=== PATIENT | female | born 1945 | race Caucasian/White ===

== ENCOUNTER 2017-05-02 13:12 | Inpatient (IN) | payer MEDICARE, OTHER ==
[~2017-05-02] VITALS: Ht 160 cm; Wt 68.0 kg
[~2017-05-02 13:12] MED LIST: AMIO200T2 PO; APIX5TAB PO; CALC-481 PO; CHOL100062 PO; CLON0.5T4 PO; DOCU100C36 PO; ERGO500014 PO; LINA145C PO; PREG100C PO; PYRI50TA9 PO; ROSU10TA PO; SULF1TAB48 PO; VALS80TA2 PO
--- NOTE | 2017-05-02 13:28 | NUR ---
PT IS IN ROOM #1B. DR HARRIS EVALUATED THE PT.
[2017-05-02] MEDS ORDERED: COREG PO (13:37)
[2017-05-02 13:52] LABS: CARBON DIOXIDE 28 mmol/L (21-32); CHLORIDE 101 mmol/L (98-107); CREATININE 1.2 mg/dL (0.6-1.3); GLUCOSE 128 mg/dL (74-106); POTASSIUM 3.7 mmol/L (3.5-5.1); UREA NITROGEN, BLOOD 27 mg/dL (7-18)
[2017-05-02 13:55] LABS: BASOPHILS # (AUTO) 0.1 K/uL (0.0-8.0); BASOPHILS % (AUTO) 1.1 % (0.0-2.0); EOSINOPHILS # (AUTO) 0.1 K/uL (0.0-0.7); EOSINOPHILS % (AUTO) 1.3 % (0.0-7.0); HEMATOCRIT 41.7 % (31.2-41.9); HEMOGLOBIN 13.8 g/dL (10.9-14.3); LYMPHOCYTES # (AUTO) 2.4 K/uL (20.0-40.0); LYMPHOCYTES % (AUTO) 38.1 % (20.5-51.5); MEAN CORPUSCULAR HEMOGLOBIN 28.5 uug (24.7-32.8); MEAN CORPUSCULAR HGB CONC 33 g/dL (32.3-35.6); MEAN CORPUSCULAR VOLUME 85.9 fL (75.5-95.3); MONOCYTES # (AUTO) 0.8 K/uL (2.0-10.0); MONOCYTES % (AUTO) 12.6 % (0.0-11.0); NEUTROPHILS # (AUTO) 2.9 K/uL (1.8-8.9); NEUTROPHILS % (AUTO) 46.9 % (38.5-71.5); PLATELET COUNT (AUTO) 202 K/uL (179-408); RED BLOOD CELL COUNT(AUTO) 4.85 MIL/uL (3.63-4.92); WHITE BLOOD COUNT (AUTO) 6.2 K/uL (3.8-11.8)
[2017-05-02 14:10] LABS: ALANINE AMINOTRANSFERASE 32 U/L (14-59); ALKALINE PHOSPHATASE 72 U/L (50-136); ASPARTATE AMINOTRANSFERASE 21 U/L (15-37); BILIRUBIN,DIRECT 0.1 mg/dL (0.0-0.2); BILIRUBIN,TOTAL 0.5 mg/dL (0.2-1.0)
[2017-05-02 14:14] LABS: BAND % (MANUAL) 1 % (0-10); BASOPHILS % (MANUAL) 1 % (0-2); EOSINOPHILS % (MANUAL) 1 % (0-8); LYMPHOCYTES % (MANUAL) 39 % (20-40); METAMYELOCYTES % 3 % (0-1); MONOCYTES % (MANUAL) 16 % (2-10); MYELOCYTES % 1 % (0-0); NEUTROPHILS % (MANUAL) 38 % (42-75)
--- NOTE | 2017-05-02 15:02 | NUR ---
REPORT WAS GIVEN TO SENIOR NET APPLICATION DEVELOPER. PT WAS TRANSFERED TO ROOM #206.
[2017-05-02] MEDS ORDERED: ACETAMINOPHEN 325 MG TABLET PO PRN (15:30)
[2017-05-02] MEDS ORDERED: MAGNESIUM HYDROXIDE 30 ML LIQUID UDC PO PRN (15:30)
[2017-05-02] MEDS ORDERED: ZOLPIDEM 5 MG TABLET PO PRN (15:30)
[2017-05-02] MEDS ORDERED: ERGOCALCIFEROL 50,000 UNIT CAPSULE PO SCH (15:30)
[2017-05-02] MEDS ORDERED: HYDROCODONE/APAP 5-325MG TABLET PO PRN (15:30)
[2017-05-02] MEDS ORDERED: ONDANSETRON 4 MG/2 ML VIAL IV PRN (15:30)
[2017-05-02] MEDS ORDERED: Z GUARD REMEDY PASTE 57 GM TUBE TOP PRN (15:30)
--- NOTE | 2017-05-02 15:50 | NUR ---
Patient was received from ER. Patient is in no apparent distress at this time. Patient oriented to unit, and youth nutritional monitor attached. Patients cardiac status is Sinus alia and 55 bpm.
[2017-05-02 16:00] VITALS: BP 114/64
[2017-05-02] MEDS ORDERED: ZOLP5TAB2 PO (16:01)
[2017-05-02] MEDS ORDERED: APIXABAN 5 MG TABLET PO SCH (17:00)
[2017-05-02] MEDS ORDERED: [UNRECOGNIZED DRUG - OTHER] PO SCH (17:00)
[2017-05-02] MEDS ORDERED: APIXABAN 5 MG TABLET PO ONE (17:00)
[2017-05-02] MEDS ORDERED: VITAMIN D3 PO SCH (17:00)
[2017-05-02] MEDS ORDERED: CALCIUM CARBONATE PO SCH (17:00)
[2017-05-02] MEDS: DOCUSATE SODIUM 100 MG CAPSULE PO SCH (17:34)
[2017-05-02] MEDS: AMIODARONE HCL 200 MG TABLET PO SCH (17:35)
[2017-05-02] MEDS: IV NS 1000 ML 1,000 ML IV PRN (17:42)
[2017-05-02] MEDS ORDERED: EVOL140S SQ (18:24)
[2017-05-02] MEDS ORDERED: APIX2.5T PO (18:40)
--- NOTE | 2017-05-02 18:51 | NUR ---
Patient is ambulating with standby assistance, all meds reconciled with the pharmacist and doctor, and patients own meds taken to pharmacy. Patient is in no distress at this time. Patient in bed awake.
--- NOTE | 2017-05-02 20:00 | NUR ---
RECEIVED PATIENT AWAKE IN BED. PATIENT IS A/O X4. CZECH SPEAKING BUT ABLE TO MAKE NEEDS KNOWN. DENIES PAIN OR DISCOMFORT. DENIES ANY DIZZINESS. NO RESP. DISTRESS NOTED. IVF INFUSING WELL TO RIGHT FA #20 GAUGE. ON TELE SB IN THE 50'S. CALL LIGHT IN REACH. BED ALARM ON. ALL NEEDS ATTENDED, WILL CONTINUE TO MONITOR.
[2017-05-02] MEDS: CALCIUM CARB/VITAMIN D 500MG-200UNITS TABLET PO SCH (20:26)
[2017-05-02 20:30] VITALS: BP 112/51
[2017-05-02] MEDS ORDERED: HOME MED MISCELLANEOUS PO SCH (21:00)
[2017-05-02] MEDS ORDERED: CLONAZEPAM 0.5 MG TABLET PO SCH (21:00)
[2017-05-02] MEDS ORDERED: Medication Not On Formulary EA (Rosuvastatin Calcium (Crestor) 10 MG) PO SCH (21:00)
[2017-05-02] MEDS ORDERED: ATORVASTATIN 20 MG TABLET PO SCH (21:00)
[2017-05-03 00:15] VITALS: BP 106/40
[2017-05-03 04:22] VITALS: BP 125/47
[2017-05-03] MEDS: IV NS 1000 ML 1,000 ML IV PRN (06:29)
[2017-05-03 06:40] LABS: BASOPHILS # (AUTO) 0.1 K/uL (0.0-8.0); EOSINOPHILS # (AUTO) 0.1 K/uL (0.0-0.7); EOSINOPHILS % (AUTO) 2.7 % (0.0-7.0); HEMATOCRIT 38.9 % (31.2-41.9); LYMPHOCYTES # (AUTO) 2.1 K/uL (20.0-40.0); LYMPHOCYTES % (AUTO) 41.1 % (20.5-51.5); MEAN CORPUSCULAR HEMOGLOBIN 29.1 uug (24.7-32.8); MEAN CORPUSCULAR HGB CONC 34 g/dL (32.3-35.6); MONOCYTES # (AUTO) 0.6 K/uL (2.0-10.0); MONOCYTES % (AUTO) 12.1 % (0.0-11.0); NEUTROPHILS # (AUTO) 2.2 K/uL (1.8-8.9); NEUTROPHILS % (AUTO) 43.1 % (38.5-71.5); PLATELET COUNT (AUTO) 170 K/uL (179-408); RED BLOOD CELL COUNT(AUTO) 4.48 MIL/uL (3.63-4.92); WHITE BLOOD COUNT (AUTO) 5.2 K/uL (3.8-11.8)
--- NOTE | 2017-05-03 06:48 | NUR ---
PATIENT AWAKE IN BED. SLEPT AT INTERVALS. ON TELE SB IN THE 50'S. DENIES PAIN OR DISCOMFORT. NO RESP. DISTRESS NOTED. BED ALARM ON. CALL LIGHT IN REACH. ALL NEEDS ATTENDED. WILL CONTINUE TO MONITOR.
[2017-05-03 06:52] LABS: CARBON DIOXIDE 30 mmol/L (21-32); CHLORIDE 102 mmol/L (98-107); CREATININE 0.9 mg/dL (0.6-1.3); GLUCOSE 91 mg/dL (74-106); MAGNESIUM 1.8 mg/dL (1.8-2.4); PHOSPHOROUS 3.7 mg/dL (2.5-4.9); POTASSIUM 4.1 mmol/L (3.5-5.1); UREA NITROGEN, BLOOD 17 mg/dL (7-18)
--- NOTE | 2017-05-03 07:30 | NUR ---
Received report from journalism teacher nurse, patient in bed awake, no evidence of distress noted, all needs met, bed alarm on and side rails up x2.
[2017-05-03] MEDS: DOCUSATE SODIUM 100 MG CAPSULE PO SCH (08:17)
[2017-05-03] MEDS: CALCIUM CARB/VITAMIN D 500MG-200UNITS TABLET PO SCH (08:19)
[2017-05-03] MEDS: AMIODARONE HCL 200 MG TABLET PO SCH ×2 (08:19→08:25)
[2017-05-03] MEDS ORDERED: PYRIDOXINE HCL 100 MG TABLET PO SCH (09:00)
[2017-05-03] MEDS ORDERED: ELIQUIS 2.5 MG PO SCH (09:00)
[2017-05-03] MEDS ORDERED: Medication Not On Formulary EA (Pyridoxine Hcl (Vitamin B-6) 50 MG) PO SCH (09:00)
[2017-05-03] MEDS ORDERED: CHOLECALCIFEROL 1,000 UNIT TABLET PO SCH (09:00)
[2017-05-03 09:52] LABS: BAND % (MANUAL) 1 % (0-10); BASOPHILS % (MANUAL) 1 % (0-2); EOSINOPHILS % (MANUAL) 3 % (0-8); LYMPHOCYTES % (MANUAL) 39 % (20-40); METAMYELOCYTES % 1 % (0-1); MONOCYTES % (MANUAL) 13 % (2-10); MYELOCYTES % 2 % (0-0); NEUTROPHILS % (MANUAL) 40 % (42-75)
[2017-05-03 11:59] VITALS: BP 164/69
[2017-05-03] MEDS ORDERED: APIXABAN 5 MG TABLET PO SCH (12:45)
--- NOTE | 2017-05-03 13:00 | NUR ---
Patient met with Cardiothoracic surgeon. Addendum: 05/03/17 at 1811 by QUINCY SALGADO RN WRONG PATIENT NOTE: please disregard Addendum: 05/03/17 at 1811 by QUINCY SALGADO RN Wrong patient note: please disregard.
[2017-05-03 16:03] VITALS: BP 138/69
[2017-05-03 16:20] VITALS: BP 140/60
--- NOTE | 2017-05-03 17:00 | NUR ---
patient met with Dr. Foster.
--- NOTE | 2017-05-03 17:40 | NUR ---
Patient was provided with discharge instructions, IV removed and patient education conducted. Patient was in no distress at discharge, son came to pick her up. Patient wheeled to patient's sons car via wheelchair.
[2017-05-03] MEDS ORDERED: CARVEDILOL 3.125 MG TABLET PO SCH (18:00)
[2017-05-03] MEDS ORDERED: ZOLPIDEM 5 MG TABLET PO SCH (18:00)
[2017-05-04] MEDS ORDERED: VALSARTAN 80 MG TABLET PO SCH (09:00)
== END 2017-05-03 17:45 | disposition home or self-care (01) | DRG 73 ==
LOC: ER 13:14 → TELE 15:17
PROVIDERS: ADMIT Internal Medicine; ATTEND Internal Medicine
DX: G90.8 Other disorders of autonomic nervous system (principal); I21.9 Acute myocardial infarction, unspecified; I48.0 Paroxysmal atrial fibrillation; E78.5 Hyperlipidemia, unspecified; I10 Essential (primary) hypertension; E86.0 Dehydration; Z79.01 Long term (current) use of anticoagulants; I25.10 Atherosclerotic heart disease of native coronary artery without angina pectoris; Z79.899 Other long term (current) drug therapy; Z96.653 Presence of artificial knee joint, bilateral; Z86.72 Personal history of thrombophlebitis; Z87.440 Personal history of urinary (tract) infections
CPT/HCPCS: 36415; 70030-TC; 71045; 83605; 83735; 84100; 85025; 85730; 87040; 93005; 93307; 93880; A4663; J7030

== ENCOUNTER 2024-02-21 20:28 | Inpatient (IN) | payer MEDICARE, OTHER ==
[~2024-02-21] VITALS: Ht 154.9 cm; Wt 66.7 kg
[~2024-02-21 20:28] MED LIST changes: -AMIO200T2 PO; +AMIO200T5 PO; +APIX2.5T PO; -APIX5TAB PO; +COREG PO; +EVOL140S2 SQ; -LINA145C PO; -PREG100C PO; +PYRI-8 PO; -PYRI50TA9 PO; -ROSU10TA PO; -SULF1TAB48 PO; +ZOLP5TAB2 PO
[2024-02-21] MEDS: AMIODARONE HCL IV 450 MG in IV DEXTROSE 5% 250 ML IV PRN (20:30)
[2024-02-21] MEDS ORDERED: AMIODARONE HCL 150 MG/3 ML VIAL IV ONE ×2 (21:25→21:26)
[2024-02-21] MEDS: AMIODARONE HCL IV 150 MG in IV DEXTROSE 5% 100 ML IV ONE (21:30)
[2024-02-21 21:46] LABS: BASOPHILS # (AUTO) 0.1 K/UL (0.0-0.2); BASOPHILS % (AUTO) 0.9 % (0.0-2.0); EOSINOPHILS # (AUTO) 0.1 K/uL (0.0-0.7); EOSINOPHILS % (AUTO) 0.8 % (0.0-7.0); HEMATOCRIT 35.8 % (31.2-41.9); HEMOGLOBIN 11.4 g/dL (10.9-14.3); LYMPHOCYTES # (AUTO) 1.7 K/uL (0.8-4.8); MEAN CORPUSCULAR HEMOGLOBIN 24.8 uug (24.7-32.8); MEAN CORPUSCULAR HGB CONC 32 g/dL (32.3-35.6); MONOCYTES # (AUTO) 0.9 K/uL (0.1-1.30); MONOCYTES % (AUTO) 12.5 % (0.0-11.0); NEUTROPHILS # (AUTO) 4.8 K/uL (1.8-8.9); NEUTROPHILS % (AUTO) 63.8 % (38.5-71.5); PLATELET COUNT (AUTO) 167 K/uL (179-408); RED CELL DISTRIBUTION WIDTH 18.2 % (12.3-17.7); WHITE BLOOD COUNT (AUTO) 7.6 K/uL (3.8-11.8)
[2024-02-21 21:49] LABS: DIFFERENTIAL COMMENT 1
[2024-02-21 21:51] LABS: CALCIUM 8.4 mg/dL (8.5-10.1); CARBON DIOXIDE 26 mmol/L (21-32); CHLORIDE 106 mmol/L (98-107); CREATININE 1.3 mg/dL (0.6-1.3); GLUCOSE 109 mg/dL (74-106); POTASSIUM 4.9 mmol/L (3.5-5.1); SODIUM SERUM 141 mmol/L (136-145); UREA NITROGEN, BLOOD 31 mg/dL (7-18)
[2024-02-21] MEDS ORDERED: ASPIRIN 81 MG TAB.CHEW ONE (21:53)
[2024-02-21] MEDS: ASPIRIN 81 MG TAB.CHEW PO ONE (21:54)
[2024-02-21 22:05] LABS: ALANINE AMINOTRANSFERASE 41 U/L (14-59); ALBUMIN 3.3 g/dL (3.4-5.0); ALKALINE PHOSPHATASE 115 U/L (50-136); ASPARTATE AMINOTRANSFERASE 18 U/L (15-37); BILIRUBIN,DIRECT 0.1 mg/dL (0.0-0.2); BILIRUBIN,TOTAL 0.2 mg/dL (0.2-1.0); NT-PRO BNP 2202 pg/mL (0-125); TOTAL PROTEIN, SERUM 6.9 g/dL (6.4-8.2)
[2024-02-21] MEDS ORDERED: SERT25TA PO (22:33)
[2024-02-21] MEDS ORDERED: DOCU-265 PO (22:33)
[2024-02-21] MEDS ORDERED: OLME20TA13 PO (22:33)
[2024-02-21] MEDS ORDERED: EMPA10TA PO (22:33)
[2024-02-21] MEDS ORDERED: APIX5TAB PO (22:33)
[2024-02-21] MEDS ORDERED: PANT40TA2 PO (22:33)
[2024-02-21] MEDS ORDERED: PREG50CA PO (22:33)
[2024-02-21] MEDS ORDERED: MONT10TA33 PO (22:33)
[2024-02-21] MEDS ORDERED: CHOL10005 PO (22:33)
[2024-02-21] MEDS ORDERED: ZOLP10TA2 PO (22:33)
[2024-02-21] MEDS ORDERED: CARV6.252 PO (22:33)
[2024-02-21] MEDS ORDERED: ROSU40TA PO (22:33)
[2024-02-21] MEDS: CARVEDILOL 6.25 MG TABLET PO SCH (22:45)
[2024-02-21] MEDS ORDERED: ACETAMINOPHEN 325 MG TABLET PO PRN (22:45)
[2024-02-21] MEDS ORDERED: ONDANSETRON 4 MG/2 ML VIAL IV PRN (22:45)
[2024-02-21] MEDS ORDERED: DEXTROSE 50% 50 ML DISP.SYRIN IV PRN (23:00)
[2024-02-21] MEDS ORDERED: INSULIN REGULAR, HUMAN 1000 UNIT/10 ML VIAL SQ PRN (23:00)
[2024-02-21] MEDS ORDERED: ENALAPRILAT DIHYDRATE 1.25 MG/1 ML VIAL IV PRN (23:00)
[2024-02-22] MEDS ORDERED: AMIODARONE HCL 150 MG/3 ML VIAL IV ONE (06:29)
[2024-02-22 07:25] LABS: BASOPHILS # (AUTO) 0.1 K/UL (0.0-0.2); BASOPHILS % (AUTO) 0.7 % (0.0-2.0); EOSINOPHILS % (AUTO) 0.5 % (0.0-7.0); HEMATOCRIT 33.3 % (31.2-41.9); LYMPHOCYTES # (AUTO) 1.6 K/uL (0.8-4.8); LYMPHOCYTES % (AUTO) 20.8 % (20.5-51.5); MEAN CORPUSCULAR HEMOGLOBIN 25.7 uug (24.7-32.8); MEAN CORPUSCULAR HGB CONC 33 g/dL (32.3-35.6); MEAN CORPUSCULAR VOLUME 77.6 fL (75.5-95.3); MONOCYTES # (AUTO) 0.6 K/uL (0.1-1.30); MONOCYTES % (AUTO) 8.2 % (0.0-11.0); NEUTROPHILS # (AUTO) 5.4 K/uL (1.8-8.9); NEUTROPHILS % (AUTO) 69.8 % (38.5-71.5); PLATELET COUNT (AUTO) 141 K/uL (179-408); RED CELL DISTRIBUTION WIDTH 18.1 % (12.3-17.7); WHITE BLOOD COUNT (AUTO) 7.7 K/uL (3.8-11.8)
[2024-02-22 07:44] LABS: DIFFERENTIAL COMMENT 1
[2024-02-22 08:00] LABS: IRON, SERUM 34 ug/dL (50-175)
[2024-02-22 08:03] LABS: ALANINE AMINOTRANSFERASE 32 U/L (14-59); ALKALINE PHOSPHATASE 90 U/L (50-136); ASPARTATE AMINOTRANSFERASE 14 U/L (15-37); BILIRUBIN,TOTAL 0.4 mg/dL (0.2-1.0); CALCIUM 8.4 mg/dL (8.5-10.1); CARBON DIOXIDE 24 mmol/L (21-32); CHLORIDE 108 mmol/L (98-107); CHOLESTEROL 131 mg/dL (<200); CREATININE 0.8 mg/dL (0.6-1.3); GLUCOSE 97 mg/dL (74-106); HDL CHOLESTEROL 75 mg/dL (40-60); MAGNESIUM 2.4 mg/dL (1.8-2.4); PHOSPHOROUS 4.4 mg/dL (2.5-4.9); POTASSIUM 4.2 mmol/L (3.5-5.1); SODIUM SERUM 140 mmol/L (136-145); TOTAL PROTEIN, SERUM 6.4 g/dL (6.4-8.2); TRIGLYCERIDES 39 MG/DL (30-150); UREA NITROGEN, BLOOD 26 mg/dL (7-18)
[2024-02-22] MEDS: BLOOD SUGAR DIAGNOSTIC 1 EACH STRIP VI SCH (08:22)
[2024-02-22 08:40] LABS: THYROID STIMULATING HORMONE 1.714 mIU/mL (0.358-3.740)
[2024-02-22] MEDS ORDERED: PANTOPRAZOLE SODIUM 40 MG TABLET.DR PO ONE ×2 (09:17→17:43)
[2024-02-22] MEDS ORDERED: MONTELUKAST SODIUM 10 MG TABLET ONE (09:17)
[2024-02-22] MEDS ORDERED: DOCUSATE SODIUM 100 MG CAPSULE PO ONE ×2 (09:17→17:42)
[2024-02-22] MEDS ORDERED: CHOLECALCIFEROL 1,000 UNIT TABLET ONE (09:17)
[2024-02-22] MEDS ORDERED: SERTRALINE HCL 50 MG TABLET ONE (09:18)
[2024-02-22] MEDS ORDERED: CARVEDILOL 6.25 MG TABLET ONE ×2 (09:18→17:43)
[2024-02-22] MEDS: DOCUSATE SODIUM 100 MG CAPSULE PO SCH (09:25)
[2024-02-22] MEDS: CHOLECALCIFEROL 1,000 UNIT TABLET PO SCH (09:25)
[2024-02-22] MEDS: PANTOPRAZOLE SODIUM 40 MG TABLET.DR PO SCH (09:25)
[2024-02-22] MEDS: SERTRALINE HCL 50 MG TABLET PO SCH (09:25)
[2024-02-22] MEDS: MONTELUKAST SODIUM 10 MG TABLET PO SCH (09:25)
[2024-02-22] MEDS ORDERED: DEXTROMETHORPHAN PO (14:14)
[2024-02-22] MEDS ORDERED: BUPROPION PO (14:14)
[2024-02-22] MEDS ORDERED: PREGABALIN 50 MG CAPSULE PO SCH (16:45)
[2024-02-22] MEDS ORDERED: PREGABALIN 25 MG CAPSULE ONE (17:43)
[2024-02-22] MEDS: PREGABALIN 25 MG CAPSULE PO SCH (17:52)
[2024-02-22] MEDS: APIXABAN 2.5 MG TABLET PO SCH (17:52)
[2024-02-22] MEDS: ZOLPIDEM 5 MG TABLET PO PRN (23:39)
[2024-02-23 01:41] VITALS: BP 116/65; TEMP 97.6; O2SAT 100
[2024-02-23 07:35] VITALS: BP 168/72; TEMP 98.5; O2SAT 98
[2024-02-23 11:36] VITALS: BP 103/70; TEMP 98; O2SAT 98
[2024-02-23] MEDS: SOD FERRIC GLUC COMPLX/SUCROSE 125 MG in IV NORMAL SALINE 100 ML IV ONE (14:09)
[2024-02-23 16:00] VITALS: BP 108/60; TEMP 98; O2SAT 96
[2024-02-23] MEDS: DILTIAZEM HCL 60 MG TABLET PO SCH (17:56)
[2024-02-23 19:15] VITALS: BP 121/86; TEMP 97.8; O2SAT 96
[2024-02-24 00:32] VITALS: BP 120/78; TEMP 98; O2SAT 96
[2024-02-24 04:28] VITALS: BP 118/76; TEMP 96; O2SAT 96
[2024-02-24 07:36] LABS: BASOPHILS # (AUTO) 0.1 K/UL (0.0-0.2); BASOPHILS % (AUTO) 0.7 % (0.0-2.0); EOSINOPHILS % (AUTO) 0.7 % (0.0-7.0); HEMATOCRIT 38.1 % (31.2-41.9); HEMOGLOBIN 12.5 g/dL (10.9-14.3); LYMPHOCYTES # (AUTO) 1.5 K/uL (0.8-4.8); LYMPHOCYTES % (AUTO) 20.4 % (20.5-51.5); MEAN CORPUSCULAR HEMOGLOBIN 25.5 uug (24.7-32.8); MEAN CORPUSCULAR HGB CONC 33 g/dL (32.3-35.6); MEAN CORPUSCULAR VOLUME 77.4 fL (75.5-95.3); MONOCYTES # (AUTO) 0.8 K/uL (0.1-1.30); MONOCYTES % (AUTO) 11.3 % (0.0-11.0); NEUTROPHILS % (AUTO) 66.9 % (38.5-71.5); PLATELET COUNT (AUTO) 163 K/uL (179-408); RED BLOOD CELL COUNT(AUTO) 4.93 MIL/uL (3.63-4.92); WHITE BLOOD COUNT (AUTO) 7.5 K/uL (3.8-11.8)
[2024-02-24 07:40] LABS: DIFFERENTIAL COMMENT 1
[2024-02-24 07:51] LABS: CALCIUM 8.6 mg/dL (8.5-10.1); CARBON DIOXIDE 27 mmol/L (21-32); CHLORIDE 104 mmol/L (98-107); CREATININE 0.8 mg/dL (0.6-1.3); GLUCOSE 89 mg/dL (74-106); MAGNESIUM 2.1 mg/dL (1.8-2.4); PHOSPHOROUS 4.8 mg/dL (2.5-4.9); SODIUM SERUM 139 mmol/L (136-145); UREA NITROGEN, BLOOD 20 mg/dL (7-18)
[2024-02-24 07:52] LABS: POTASSIUM 4.4 mmol/L (3.5-5.1)
[2024-02-24] MEDS: CARVEDILOL 12.5 MG TABLET PO SCH (08:21)
[2024-02-24 12:00] VITALS: BP 104/50; TEMP 97.6; O2SAT 97
[2024-02-24 13:31] VITALS: BP 104/50
== END 2024-02-24 15:50 | disposition home or self-care (01) | DRG 308 ==
LOC: ER 20:41 → TRANSITION 02-22 01:29 → UNDOADMIN 02-22 01:29 → TELE-TD3 02-22 18:21 → TELE3 02-24 10:12
PROVIDERS: ADMIT Internal Medicine; ATTEND Nurse Practitioner Acute Care
DX: I48.20 Chronic atrial fibrillation, unspecified (principal); N17.0 Acute kidney failure with tubular necrosis; I25.10 Atherosclerotic heart disease of native coronary artery without angina pectoris; I10 Essential (primary) hypertension; E78.5 Hyperlipidemia, unspecified; Z79.01 Long term (current) use of anticoagulants; E66.9 Obesity, unspecified; Z68.27 Body mass index [BMI] 27.0-27.9, adult; E61.1 Iron deficiency; Z86.718 Personal history of other venous thrombosis and embolism; M19.90 Unspecified osteoarthritis, unspecified site; G62.9 Polyneuropathy, unspecified; D69.6 Thrombocytopenia, unspecified; F32.A Depression, unspecified; G47.00 Insomnia, unspecified; Z86.73 Personal history of transient ischemic attack (TIA), and cerebral infarction without residual deficits; Z96.653 Presence of artificial knee joint, bilateral; Z79.899 Other long term (current) drug therapy
CPT/HCPCS: 36415; 71045; 83550; 83735; 84100; 84443; 84484; 85025; 85730; 93307; A4606; A4663; G0378; J0282; J2916; J7050